=== PATIENT | female | born 1995 | race Two or more races ===

== ENCOUNTER → 2024-06-13 | Emergency (ER) | payer OTHER ==
[~2024-06-13] VITALS: Ht 160 cm; Wt 63.5 kg
[~2024-06-13] MED LIST: BACTROBAN OINT22 GM TP; CEFADROXIL500 MG PO; CORTISPORIN EAR10 M1 OT
== END | disposition home or self-care (01) ==
LOC: ER 17:02
DX: S00.411A Abrasion of right ear, initial encounter (principal)